=== PATIENT | male | born 1960 | race Hispanic/Latino ===

== ENCOUNTER 2022-02-24 12:29 | Outpatient (CLI) | payer BC | END 2022-02-24 12:30 | disposition home or self-care (01) | LOC: LABBT 12:29 | PROVIDERS: ATTEND Ophthalmology Retina Specialist | DX: Z20.822 Contact with and (suspected) exposure to COVID-19 (principal) | CPT/HCPCS: 87811 ==

== ENCOUNTER 2022-02-28 06:24 | Day surgery (SDC) | payer BC ==
[2022-02-27 14:57] VITALS: BMI 23.0
[~2022-02-28 06:24] MED LIST: EPINEPHrine 0.3 MG in Ophthalmic Irrigation Solution 500 ML IRR SCH
[2022-02-28] MEDS ORDERED: Phenylephrine 2.5% Ophth Soln 5 ML BOT ONE (06:38)
[2022-02-28] MEDS ORDERED: Cyclopentolate 1% Opth Drop 2 ML BOT ONE (06:38)
[2022-02-28] MEDS ORDERED: Midazolam HCl 2 mg/2 ml Vial ONE (06:58)
[2022-02-28] MEDS ORDERED: fentaNYL Citrate/PF 100 MCG/2 ML SYRINGE ONE (06:58)
[2022-02-28] MEDS ORDERED: PROPOFOL 20 ML ONE (07:23)
[2022-02-28] MEDS ORDERED: Triamcinolone 40 MG/ML VIAL ONE (07:39)
[2022-02-28] MEDS ORDERED: Lidocaine 4% PF 5 ML AMP ONE (07:39)
[2022-02-28] MEDS ORDERED: Bupivacaine 0.75% 10 ML VIAL ONE (07:39)
[2022-02-28] MEDS ORDERED: Maxitrol 0.1% Opth Oint 3.5 GM TUBE ONE (07:39)
[2022-02-28] MEDS ORDERED: CEFAZOLIN 1 GM VIAL ONE (07:39)
[2022-02-28] MEDS ORDERED: Lidocaine 1% PF 5 ML VIAL ONE (07:39)
[2022-02-28] MEDS ORDERED: Indocyanine Green 25 MG/10 ML VIAL ONE (07:39)
== END 2022-02-28 09:23 | disposition home or self-care (01) ==
LOC: SDC 06:24
PROVIDERS: ATTEND Ophthalmology Retina Specialist
PROC: 08B43ZZ Excision of Right Vitreous, Percutaneous Approach (ICD-10-PCS; principal; 2022-02-28)
DX: H35.341 Macular cyst, hole, or pseudohole, right eye (principal); Z20.822 Contact with and (suspected) exposure to COVID-19; Z98.890 Other specified postprocedural states
CPT/HCPCS: 67025; J0171; J0690; J2250; J2704; J3301; J3490

== ENCOUNTER 2023-03-27 09:58 | Outpatient (CLI) | payer BC ==
[2023-03-27 11:13] LABS: Hematocrit 41.1 % (38.8-50.0); Hemoglobin 14.4 g/dL (13.5-17.5); Mean Corpuscular Hemoglobin 31.5 pg (27.0-33.0); Mean Corpuscular Volume 89.9 fl (81.2-95.1); Mean Platelet Volume 13.6 fl (7.4-10.4); Platelet Count 106 10x3/uL (150-450); Red Blood Cell (RBC) Count 4.57 10x6/uL (4.32-5.72); White Blood Cell (WBC) Count 5.1 10x3/uL (3.5-10.5)
[2023-03-27 11:47] LABS: Anion Gap 12 mmol/L (10-20); BUN (Urea Nitrogen) 17 mg/dL (8.4-25.7); Calc. Creatinine Clearance 0 mL/min (70-130); Calcium 8.7 mg/dL (7.8-10.44); Carbon Dioxide 23 mmol/L (23-31); Chloride 109 mmol/L (98-107); Estimated GFR 98; Glucose 100 mg/dL (80-115); Potassium 3.6 mmol/L (3.5-5.1); Sodium 140 mmol/L (136-145)
[2023-03-27 11:53] LABS: PTT 25.7 sec (22.0-33.0); Prothrombin Time 10.8 sec (9.5-12.1)
[2023-03-27 12:22] LABS: Bilirubin Neg (Negative); Blood, Urine Negative (Negative); Clarity Clear (Clear); Glucose, Urine (Dipstick) Normal (Negative); Ketone, Urine Negative (Negative); Leukocyte Negative (Negative); Nitrite Negative (Negative); Protein, Urine (Dipstick) Negative (Neg-Trace); Urobilinogen Normal mg/dL (Less than 2)
[2023-03-27 12:41] LABS: RBC/HPF 0-3 HPF (0-3); Squamous Epithelial 0-3 HPF (0-3); WBC/HPF 0-3 HPF (0-3)
[2023-03-27 12:42] LABS: Bacteria/HPF 2+ HPF (None Seen)
[2023-03-27 12:43] LABS: Mucous/LPF 3+ LPF (<2+)
== END 2023-03-27 09:59 | disposition home or self-care (01) ==
LOC: LABBT 09:58
PROVIDERS: ATTEND Urology
DX: Z01.818 Encounter for other preprocedural examination (principal); N40.1 Benign prostatic hyperplasia with lower urinary tract symptoms; B35.6 Tinea cruris
CPT/HCPCS: 80048; 81001; 85027; 85610; 85730; 87086; 93005; 93010

== ENCOUNTER 2023-04-06 06:56 | Day surgery (SDC) | payer BC ==
[2023-03-27 10:30] VITALS: BMI 25.8
[2023-04-06] MEDS ORDERED: fentaNYL 50 mcg/mL 1 mL Vial ONE (09:45)
[2023-04-06] MEDS ORDERED: PROPOFOL 20 ML ONE (09:45)
[2023-04-06] MEDS ORDERED: LevoFLOXacin 500 mg/D5W 100 ML BAG ONE (09:53)
[2023-04-06] MEDS ORDERED: Ondansetron PF 4 MG/2 ML Vial ONE ×3 (10:05→12:27)
[2023-04-06] MEDS ORDERED: Rocuronium Bromide 10 MG/ML (10ML VIAL) ONE ×2 (10:05→10:17)
[2023-04-06] MEDS ORDERED: Dexamethasone 20 MG/5 ML VIAL ONE (10:05)
[2023-04-06] MEDS ORDERED: PROPOFOL 200 MG/20 ML VIAL ONE (10:05)
[2023-04-06] MEDS ORDERED: ePHEDrine Sulfate 50 MG/10 ML VIAL ONE ×2 (10:05→11:12)
[2023-04-06] MEDS ORDERED: Dexamethasone 4 mg/ml Vial ONE (10:17)
[2023-04-06] MEDS ORDERED: fentaNYL PF 100 MCG/2 ML SYRINGE ONE (10:48)
[2023-04-06] MEDS ORDERED: SUGAMMADEX SODIUM 200 MG/2 ML VIAL ONE (11:25)
[2023-04-06] MEDS ORDERED: Phenazopyridine HCl 100 MG TAB ONE (12:09)
[2023-04-06] MEDS ORDERED: Oxybutynin 5 MG TAB ONE (12:10)
[2023-04-06] MEDS ORDERED: Promethazine HCl 25 MG/ML VIAL ONE (13:18)
== END 2023-04-06 15:03 | disposition home or self-care (01) ==
LOC: SDC 06:56
PROVIDERS: ATTEND Urology
PROC: 0VT08ZZ Resection of Prostate, Via Natural or Artificial Opening Endoscopic (ICD-10-PCS; principal; 2023-04-06)
DX: N40.1 Benign prostatic hyperplasia with lower urinary tract symptoms (principal)
CPT/HCPCS: 88305; J1100; J1956; J2405; J2550; J2704; J3010

== ENCOUNTER 2025-05-09 10:22 | Emergency (ER) | payer BC ==
[2025-05-09] MEDS ORDERED: Cyclobenzaprine 10 MG TAB ONE (11:14)
[2025-05-09 11:40] LABS: Bacteria/HPF None Seen HPF (None Seen); CAUTI Indications for Culture Pelvic or flank pain; Glucose, Urine (Dipstick) Normal (Negative); Leukocyte Negative Leu/uL (Negative); Protein, Urine (Dipstick) Negative (Neg-Trace); RBC/HPF 0-3 HPF (0-3); Specific Gravity, Urine 1.020 (1.002-1.036); WBC/HPF 0-3 HPF (0-3)
[2025-05-09 11:45] LABS: Urine Culture Reflex No No
[2025-05-09] MEDS ORDERED: Ketorolac Tromethamine 30 MG (1 mL) VIAL ONE (12:03)
[2025-05-09 12:24] LABS: Hematocrit 42.6 % (42.0-52.0); Hemoglobin 14.7 g/dL (14.0-18.0); Mean Corpuscular Hemoglobin 30.9 pg (27.0-31.0); Mean Corpuscular Volume 89.5 fL (78.0-98.0); Platelet Count 121 10x3/uL (130-400); Red Blood Cell (RBC) Count 4.76 mill/uL (4.70-6.10); White Blood Cell (WBC) Count 6.34 10x3/uL (4.8-10.8)
[2025-05-09 12:37] LABS: ALT (SGPT) 19 U/L (Less than 45); AST (SGOT) 30 U/L (11-34); Albumin 4.2 g/dL (3.1-4.5); Alkaline Phosphatase 88 U/L (40-110); Anion Gap 25 mmol/L (10-20); BUN (Urea Nitrogen) 16 mg/dL (8.4-25.7); Bilirubin, Total 0.6 mg/dL (0.3-1.2); Calc. Creatinine Clearance 0 mL/min (70-130); Calcium 9.3 mg/dL (7.8-10.44); Carbon Dioxide 27 mmol/L (23-31); Chloride 96 mmol/L (98-107); Globulin 2.6 g/dL (2.4-3.5); Glucose 100 mg/dL (80-115); Potassium 4.5 mmol/L (3.5-5.1); Sodium 143 mmol/L (136-145)
[2025-05-09 12:53] LABS: Anisocytosis SLIGHT = 6-15 cells HPF (0-5); Burr Cells SLIGHT = 2-5 cells HPF (0-1); Platelet Adequacy Comment Platelets Decreased; Poikilocytosis SLIGHT = 6-15 cells HPF (0-5); Smudge Cells 8.1 %
[2025-05-09 13:10] LABS: Actual Bicarbonate (HCO3v) 25.5 mEq/L (22-28); Base Excess -0.1 mEq/L (-2.0 to +3.0); Calcium, Ionized (venous) 1.17 mmol/L (1.16-1.32); Chloride (VBG) 104 mmol/L (98-106); Hematocrit-VBG 46 % (42.0-52.0); Hemoglobin (Hb) 15.8 g/dL (12.6-17.4); Potassium (VBG) 4.12 mmol/L (3.70-5.30); Sodium 140 mmol/L (133-146)
[2025-05-09] MEDS ORDERED: HYDROcodone/Acetaminophen 5/325 mg Tablet ONE (14:47)
[2025-05-09] MEDS ORDERED: Dexamethasone 10 MG/ML VIAL ONE (15:02)
== END 2025-05-09 15:06 | disposition home or self-care (01) ==
LOC: ERS 10:22
DX: M48.07 Spinal stenosis, lumbosacral region (principal); M48.061 Spinal stenosis, lumbar region without neurogenic claudication; K59.00 Constipation, unspecified
CPT/HCPCS: 36415; 71045; 74176; 80053; 81001; 82805; 84484; 85025; 93005; 96374; J1100; J1885